=== PATIENT | male | born 1990 | race Caucasian/White ===

== ENCOUNTER 2023-08-07 02:00 | Emergency (ER) | payer BC, OTHER ==
[2023-08-07] MEDS ORDERED: KETOROLAC10 MG PO (02:43)
[2023-08-07] MEDS ORDERED: CLEOCIN HCL300 MG PO (02:44)
[2023-08-07] MEDS ORDERED: Clindamycin 150 MG CAP PO ONE (02:45)
[2023-08-07] MEDS ORDERED: Ketorolac 10 MG TAB PO ONE (02:45)
[2023-08-07] MEDS ORDERED: Lidocaine 1% w EPI (1:100,000) 20 ML Multi-Dose VIAL SQ ONE (03:00)
[2023-08-07 03:19] VITALS: BP 127/78
== END 2023-08-07 03:20 | disposition home or self-care (01) ==
LOC: ED 02:00
DX: K04.7 Periapical abscess without sinus (principal)

== ENCOUNTER 2023-10-21 20:20 | Emergency (ER) | payer BC ==
[~2023-10-21 20:20] MED LIST: CLEOCIN HCL300 MG PO; Cyclobenzaprine 10 MG TAB PO ONE; Home HYDROcodone/Acetaminophen 5/325 MG #4 TABS/PACK PO ONE; KETOROLAC10 MG PO; Ketorolac 30 MG/ML VIAL IM ONE; Lidocaine 4% Topical Patch TP ONE
[2023-12-19] MEDS ORDERED: CLINDAMYCIN 300MG PO (06:59)
== END 2023-10-21 22:10 | disposition home or self-care (01) ==
LOC: ED 20:20
DX: G89.29 Other chronic pain (principal); M54.9 Dorsalgia, unspecified
CPT/HCPCS: J1885

== ENCOUNTER 2023-12-17 20:52 | Emergency (ER) | payer BC ==
[~2023-12-17] VITALS: Ht 185.4 cm; Wt 205.9 kg
[~2023-12-17 20:52] MED LIST changes: -Cyclobenzaprine 10 MG TAB PO ONE; -Home HYDROcodone/Acetaminophen 5/325 MG #4 TABS/PACK PO ONE; -Ketorolac 30 MG/ML VIAL IM ONE; -Lidocaine 4% Topical Patch TP ONE
[2023-12-17] MEDS ORDERED: LAMOTRIGINE100 M3 PO (21:18)
[2023-12-17] MEDS ORDERED: VENLAFAXINE HY150 MG PO (21:18)
[2023-12-17] MEDS ORDERED: PANTOPRAZOLE SO20 M1 PO (21:18)
[2023-12-17] MEDS ORDERED: LISINOPRIL40 MG PO (21:19)
[2023-12-17] MEDS ORDERED: HYDROXYZINE HYD50 M1 PO (21:19)
[2023-12-17] MEDS ORDERED: DESYREL50 MG PO (21:19)
[2023-12-17] MEDS ORDERED: TRULANCE3 MG PO (21:20)
[2023-12-17] MEDS ORDERED: HYDROcodone/Acetaminophen 10-325 MG TAB PO ONE (23:45)
[2023-12-17] MEDS ORDERED: Clindamycin 150 MG CAP PO ONE (23:45)
[2023-12-17] MEDS ORDERED: Home HYDROcodone/Acetaminophen 5/325 MG #4 TABS/PACK PO ONE (23:45)
[2023-12-17] MEDS ORDERED: Lidocaine 2% Viscous 15 ML UNIT DOSE CUP MM ONE (23:45)
[2023-12-18 00:36] VITALS: BP 134/85
[2023-12-19] MEDS ORDERED: CLINDAMYCIN 300MG PO (06:59)
== END 2023-12-18 00:38 | disposition home or self-care (01) ==
LOC: ED 20:52
DX: G89.29 Other chronic pain (principal); K08.89 Other specified disorders of teeth and supporting structures

== ENCOUNTER 2024-03-23 20:23 | Emergency (ER) | payer OTHER ==
[~2024-03-23] VITALS: Ht 188 cm; Wt 190.9 kg
[~2024-03-23 20:23] MED LIST changes: +CLINDAMYCIN 300MG PO; +DESYREL50 MG PO; +HYDROXYZINE HYD50 M1 PO; +LAMOTRIGINE100 M3 PO; +LISINOPRIL40 MG PO; +PANTOPRAZOLE SO20 M1 PO; +TRULANCE3 MG PO; +VENLAFAXINE HY150 MG PO
[2024-03-23] MEDS ORDERED: NS 1,000 ML IV SCH (20:45)
[2024-03-23] MEDS ORDERED: fentaNYL 100 MCG/2 ML VIAL IV ONE (20:45)
[2024-03-23] MEDS ORDERED: LORazepam 2 MG/ML VIAL IV ONE (20:45)
[2024-03-23] MEDS ORDERED: LINZESS145 MCG PO (20:46)
[2024-03-23] MEDS ORDERED: DEXTROAMPH SACC30 MG PO (20:46)
[2024-03-23] MEDS ORDERED: TADALAFIL10 MG PO (20:46)
[2024-03-23] MEDS ORDERED: ORPHENADRINE C100 MG PO (20:46)
[2024-03-23 20:49] LABS: BASO # 0.04 K/mm3 (0.02-0.10); EOS # 0.23 K/mm3 (0.04-0.40); EOS % 1.8 % (0.0-4.0); HEMATOCRIT 44.6 % (42.0-52.0); LYMPH# 3.02 K/mm3 (1.50-4.00); MEAN CELL VOLUME 86 fl (78-100); MEAN CORPUSCULAR HEMOGLOBIN 27 pg (27-31); MEAN CORPUSCULAR HGB CONC 31 g/dL (33-37); MEAN PLATELET VOLUME 9.9 fl (7.4-10.4); MONO # 0.84 K/mm3 (0.20-0.80); NEU # 8.33 K/mm3 (1.40-6.50); PLATELET COUNT 305 K/mm3 (130-400); RED BLOOD COUNT 5.19 M/mm3 (4.20-5.60); RED CELL DISTRIBUTION WIDTH 14.6 % (11.5-14.5); WHITE BLOOD COUNT 12.5 K/mm3 (4.8-10.8)
[2024-03-23 20:56] LABS: ALBUMIN 4.4 g/dL (3.5-5.0)
[2024-03-23 20:58] LABS: CALCIUM 9.5 mg/dL (8.3-10.5)
[2024-03-23 20:59] LABS: TOTAL PROTEIN 7.7 g/dL (6.4-8.3)
[2024-03-23 21:01] LABS: TOTAL BILIRUBIN 0.2 mg/dL (0.2-1.2)
[2024-03-23] MEDS ORDERED: Home HYDROcodone/Acetaminophen 5/325 MG #4 TABS/PACK PO ONE (21:45)
[2024-03-23 21:58] VITALS: BP 136/77
== END 2024-03-23 21:59 | disposition home or self-care (01) ==
LOC: ED 20:23
PROVIDERS: Physician Assistant
DX: K62.5 Hemorrhage of anus and rectum (principal); K64.4 Residual hemorrhoidal skin tags; R00.0 Tachycardia, unspecified
CPT/HCPCS: J2060; J3010; J7030